=== PATIENT | male | born 1985 | race African-American/Black ===

== ENCOUNTER 2019-01-28 17:44 | Emergency (ER) | payer MEDICAID ==
[~2019-01-28] VITALS: Ht 180.3 cm; Wt 104.0 kg
[2019-01-28] MEDS ORDERED: BACITRACIN ZINC OINT UDPKT TOP ONE (19:00)
[2019-01-28] MEDS ORDERED: LIDOCAINE HCL/PF 1% 10 MG/ML 5ML VIAL IJ ONE (19:00)
[2019-01-28] MEDS: IBUPROFEN 800MG TABLET PO ONE ×2 (19:51→20:04)
[2019-01-28] MEDS ORDERED: IBUPROFEN 800MG TABLET PO ONE (20:00)
[2019-01-28 20:49] VITALS: BP 112/80
== END 2019-01-28 20:54 | disposition home or self-care (01) ==
LOC: ER 17:44
DX: S01.01XA Laceration without foreign body of scalp, initial encounter (principal); W22.03XA Walked into furniture, initial encounter; Y93.89 Activity, other specified; Y92.018 Other place in single-family (private) house as the place of occurrence of the external cause
CPT/HCPCS: 12002; 99283; J3490; Z7610

== ENCOUNTER 2019-02-08 04:14 | Emergency (ER) | payer MEDICAID ==
[~2019-02-08] VITALS: Ht 180.3 cm; Wt 105.0 kg
[2019-02-08 07:02] VITALS: BP 146/91
== END 2019-02-08 08:11 | disposition left against medical advice (07) ==
LOC: ER 04:14
DX: Z53.21 Procedure and treatment not carried out due to patient leaving prior to being seen by health care provider (principal)

== ENCOUNTER 2019-02-08 08:27 | Emergency (ER) | payer MEDICAID ==
[~2019-02-08] VITALS: Ht 180.3 cm; Wt 105.0 kg
[2019-02-08 08:33] VITALS: BP 137/92
== END 2019-02-08 09:43 | disposition home or self-care (01) ==
LOC: ER 08:27
DX: S01.81XD Laceration without foreign body of other part of head, subsequent encounter (principal); W22.8XXD Striking against or struck by other objects, subsequent encounter
CPT/HCPCS: 99282